=== PATIENT | male | born 1975 | race Two or more races ===

== ENCOUNTER → 2024-09-18 | Outpatient (CLI) | payer MEDICAID ==
[~2024-09-18] MED LIST: ASPI1TAB20 PO; COLCPOW2 PO; NAP500T PO; SIMV20TA20 PO
[2024-09-19 08:06] LABS: Rheumatoid Arthritis Factor <10.0 IU/mL (<14.0)
[2024-09-19 17:06] LABS: Anti-Nuclear Antibody Direct Negative (Negative)
== END | disposition home or self-care (01) ==
LOC: LAB 11:33
PROVIDERS: ATTEND Internal Medicine Pulmonary Disease
DX: I27.0 Primary pulmonary hypertension (principal)
CPT/HCPCS: 86038; 86200; 86431

== ENCOUNTER → 2024-10-02 | Outpatient (CLI) | payer MEDICAID ==
--- NOTE | 2024-10-03 12:04 | DVHNC2 ---
Procedure - Pulmonary function test interpretation: October 02, 2024. 1. No obstructive or restrictive ventilatory defect. 2. No significant bronchodilator response. Of note FVC improved by 90 mL. 3. Total lung capacity is within normal limits, 90% of predicted. (5.98 L). 4. Diffusion capacity is within normal limits, 120% of predicted. ROBERT MALDONADO MD Oct 03, 2024 12:04
--- NOTE | 2024-10-03 12:14 | DVHNC2 ---
Procedure - 6 minute walk test interpretation October 02 2024. 1. No significant exertional desaturation. 2. Expected heart rate achieved. 3. Completed 6 minutes of ambulation. 4. Mild reduction in distance walk. ROBERT MALDONADO MD Oct 03, 2024 12:14
== END | disposition home or self-care (01) ==
LOC: RT 15:07
PROVIDERS: ATTEND Internal Medicine Pulmonary Disease
DX: I27.20 Pulmonary hypertension, unspecified (principal); F17.210 Nicotine dependence, cigarettes, uncomplicated
CPT/HCPCS: 94060; 94618; 94727; 94729